=== PATIENT | female | born 1990 | race Two or more races ===

== ENCOUNTER 2021-09-17 19:33 | Emergency (ER) | payer MEDICAID, OTHER ==
[~2021-09-17] VITALS: Ht 165.1 cm; Wt 59.9 kg
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
--- NOTE | 2021-09-17 19:57 | NUR ---
PT PLACED ON 5150 HOLD FOR DTO
--- NOTE | 2021-09-17 20:10 | NUR ---
COVID ANTIGEN SWAB COLLECTED AND SENT TO LAB. GROUNDS FOREMAN AT PT'S BEDSIDE
[2021-09-17 20:27] LABS: BASOPHILS % (AUTO) 0.3 % (0.0-2.0); EOSINOPHILS % (AUTO) 0.4 % (0.0-6.0); HEMATOCRIT 37 % (33-45); HEMOGLOBIN 12.2 g/dL (11.5-14.8); LYMPHOCYTES # (AUTO) 1.4 K/uL (0.8-4.8); LYMPHOCYTES % (AUTO) 21.8 % (20.0-44.0); MEAN CORPUSCULAR HGB CONC 33 g/dl (31.0-36.0); MEAN CORPUSCULAR VOLUME 93 fL (82-100); MONOCYTES # (AUTO) 0.5 K/uL (0.1-1.30); MONOCYTES % (AUTO) 7.9 % (2.0-12.0); NEUTROPHILS # (AUTO) 4.6 K/uL (1.8-8.9); NEUTROPHILS % (AUTO) 69.6 % (43.0-81.0); PLATELET COUNT (AUTO) 134 K/uL (150-450); RED BLOOD CELL COUNT(AUTO) 3.97 MIL/uL (4.0-5.2); WHITE BLOOD COUNT (AUTO) 6.6 K/uL (4.3-11.0)
--- NOTE | 2021-09-17 20:38 | NUR ---
URINE COLLECTED AND SENT TO LAB
[2021-09-17 20:42] LABS: CALCIUM, SERUM 9.3 mg/dL (8.5-10.1); CARBON DIOXIDE 29 mmol/L (21-32); CHLORIDE 103 mmol/L (98-107); CREATININE 0.8 mg/dL (0.6-1.3); GLUCOSE 115 mg/dL (74-106); POTASSIUM 3.3 mmol/L (3.5-5.1); SODIUM SERUM 140 mmol/L (136-145); UREA NITROGEN, BLOOD 10 mg/dL (7-18)
[2021-09-17 21:00] LABS: ALANINE AMINOTRANSFERASE 104 U/L (12-78); ALBUMIN 3.7 g/dL (3.4-5.0); ALCOHOL, BLOOD < 3 mg/dL (0-0); ALKALINE PHOSPHATASE 89 U/L (46-116); ASPARTATE AMINOTRANSFERASE 38 U/L (15-37); BILIRUBIN,DIRECT 0.1 mg/dL (0.0-0.2); BILIRUBIN,TOTAL 0.4 mg/dL (0.2-1.0); TOTAL PROTEIN, SERUM 7.2 g/dL (6.4-8.2)
[2021-09-17 21:03] LABS: ACETAMINOPHEN < 3 ug/ml (10-30)
[2021-09-17] MEDS ORDERED: POTASSIUM CHLORIDE 20 MEQ TAB.PRT.SR PO ONE ×2 (21:30)
--- NOTE | 2021-09-17 21:45 | NUR ---
[facility]
[2021-09-17 21:56] LABS: BILIRUBIN,URINE NEGATIVE (NEGATIVE); COLOR,URINE YELLOW (YELLOW); LEUKOCYTE ESTERASE ,URINE NEGATIVE (NEGATIVE); NITRITE, URINE NEGATIVE (NEGATIVE); PH,URINE 5.5 (5.0-8.0); PROTEIN,URINE 30 mg/dl (NEGATIVE); UGLUCOSE NEGATIVE (NEGATIVE); UROBILINOGEN,URINE 0.2 EU/dL (0.2)
[2021-09-17 22:10] LABS: BACTERIA,URINE 1+ /HPF (None Seen); RBC,URINE 51-80 /HPF (0-2); WBC,URINE 0-2 /HPF (0-3)
[2021-09-17 22:11] LABS: MUCUS,URINE Moderate /LPF (None Seen)
--- NOTE | 2021-09-18 05:20 | NUR ---
PT AMBULATED TO RESTROOM WITH STEADY GAIT & SUPERVISION. ADLS DONE.
[2021-09-18] MEDS ORDERED: LORAZEPAM 1 MG TABLET PO ONE (06:00)
[2021-09-18 07:25] VITALS: BP 112/62
--- NOTE | 2021-09-18 10:08 | NUR ---
Psych referrals: MEHDI followed up with [facility] TEL: [phone] Intake who stated they have not receive clinicals for this patient. MEHDI refaxed clincials to Intake . MEHDI also faxed clinicals to : [facility] tel:[phone] FAX:[phone] [facility] fax:[phone] tel:[phone] [facility] TEL: [phone] fax: [phone]
--- NOTE | 2021-09-18 12:09 | NUR ---
MEHDI received call from [facility] [[address] [facility] [address]]stating they are accepting this patient under the care of psychiatrist: Dr. Harrington. Pt. will be on the 2nd floor room: 220-1. Nurse to nurse report to be given to Leandro RN [phone]. MEHDI notified Lucia Sanchez from ED to arrange tranport.
--- NOTE | 2021-09-18 14:05 | NUR ---
ETA 1 HOUR 30 MINS BLS TRANSPORT VIA [facility].
--- NOTE | 2021-09-18 14:45 | NUR ---
REPORT GIVEN TO [facility] STAFF
== END 2021-09-18 16:19 ==
LOC: ER 19:35
DX: R45.4 Irritability and anger (principal); E87.6 Hypokalemia; R74.01 Elevation of levels of liver transaminase levels; Z20.822 Contact with and (suspected) exposure to COVID-19; R31.29 Other microscopic hematuria; D69.6 Thrombocytopenia, unspecified
CPT/HCPCS: 36415; 80048; 80076; 80143; 80307; 80320; 81001; 84703; 85025; 87426; 99285; C9803; G0480